=== PATIENT | female | born 1965 | race Caucasian/White ===

== ENCOUNTER 2018-11-03 17:55 | Emergency (ER) | payer BC, OTHER ==
[~2018-11-03] VITALS: Ht 165.1 cm; Wt 79.4 kg
[2018-11-03] MEDS ORDERED: HYDR25T PO (18:04)
[2018-11-03] MEDS ORDERED: CEPHALEXIN500 M1 PO (20:08)
[2018-11-03] MEDS ORDERED: NORCO 5-325 TA1 EACH PO (20:08)
[2018-11-03] MEDS ORDERED: IBUPROFEN600 MG PO (20:08)
== END 2018-11-03 20:14 | disposition home or self-care (01) ==
LOC: ED 17:55
DX: S02.2XXB Fracture of nasal bones, initial encounter for open fracture (principal); Z79.899 Other long term (current) drug therapy; W21.03XA Struck by baseball, initial encounter; Y93.64 Activity, baseball; Y92.89 Other specified places as the place of occurrence of the external cause; Y99.8 Other external cause status